=== PATIENT | male | born 1995 | race Caucasian/White ===

== ENCOUNTER 2016-09-11 17:02 | Emergency (ER) | payer SELFPAY ==
[~2016-09-11] VITALS: Ht 182.9 cm; Wt 79.5 kg
[~2016-09-11 17:02] MED LIST: FLONASE NASAL S16 GM NS; SINGULAIR; [UNRECOGNIZED DRUG - OTHER]
[2016-09-11 17:13] VITALS: BP 118/82; PULSE 108; TEMP 97.8
== END 2016-09-11 18:23 | disposition home or self-care (01) ==
LOC: COL.ER 17:02
DX: S81.011A Laceration without foreign body, right knee, initial encounter (principal); W29.3XXA Contact with powered garden and outdoor hand tools and machinery, initial encounter